=== PATIENT | female | born 1980 | race Hispanic/Latino ===

== ENCOUNTER → 2024-02-05 | Outpatient (RCR) | payer BC | LOC: PT 01-29 12:39 | PROVIDERS: ATTEND Physician Assistant | DX: M75.02 Adhesive capsulitis of left shoulder (principal); M62.81 Muscle weakness (generalized); M25.511 Pain in right shoulder; M25.611 Stiffness of right shoulder, not elsewhere classified ==

== ENCOUNTER 2024-03-06 10:55 | Outpatient (RCR) | payer BC | END 2024-03-07 | LOC: PT 10:55 | PROVIDERS: ATTEND Physician Assistant | DX: M75.02 Adhesive capsulitis of left shoulder (principal); M62.81 Muscle weakness (generalized); M25.512 Pain in left shoulder; M25.612 Stiffness of left shoulder, not elsewhere classified ==

== ENCOUNTER 2024-03-30 11:00 | Outpatient (RCR) | payer BC | END 2024-04-06 | LOC: PT 11:00 | PROVIDERS: ATTEND Physician Assistant | DX: M75.02 Adhesive capsulitis of left shoulder (principal); M25.511 Pain in right shoulder; M25.611 Stiffness of right shoulder, not elsewhere classified; M62.81 Muscle weakness (generalized) ==